=== PATIENT | female | born 1990 | race Hispanic/Latino ===

== ENCOUNTER 2017-03-30 12:43 | Inpatient (IN) | payer OTHER, MEDICAID ==
--- NOTE | 2017-03-30 15:12 | Ultrasound Report ---
BIOPHYSICAL PROFILE: INDICATION: well being. COMPARISON: None similar. TECHNIQUE: Transabdominal ultrasound with Doppler interrogation. 2 - breathing movements 0 - movements 2 - posture and tone 2 - Qualitative amniotic fluid volume 6 - TOTAL SCORE OF POSSIBLE 8 Heart Rate (bpm) 147 CONCLUSION: Findings, as above.
--- NOTE | 2017-03-30 15:23 | Ultrasound Report ---
OB LIMITED INDICATION: well being. COMPARISON: None similar at this institution. TECHNIQUE: Transabdominal grayscale ultrasound with Doppler interrogation. Gestation: Jiménez Position: Cephalic Amniotic Fluid: WNL (7-24 cm) STEPHANIE = 5 cm Heart Rate: 143 BPM CONCLUSION: Findings, as above.
[2017-03-30] MEDS ORDERED: LACTATED RINGERS 1,000 ML ONE (16:52)
[2017-03-30] MEDS ORDERED: BRETHINE SUB-Q PRN (17:35)
[2017-03-30] MEDS ORDERED: POLYCILLIN/NS 2 GM/100 ML 2 GM/100 ML BAG IV ONE (17:35)
[2017-03-30] MEDS ORDERED: XYLOCAINE 2% INFILTRATI ONE (17:35)
[2017-03-30] MEDS ORDERED: ePHEDrine SULFATE IV PRN (17:35)
[2017-03-30] MEDS ORDERED: MINERAL OIL PO PRN (17:35)
[2017-03-30] MEDS ORDERED: BRETHINE IVP PRN (17:35)
[2017-03-30 17:48] LABS: Hematocrit 36.9 % (30.3-42.9); Hemoglobin 12.3 gm/dl (10.1-14.3); Mean Corpuscular HGB Conc 33 % (30-34); Mean Corpuscular Hemoglobin 33 pg (28-32); Mean Corpuscular Volume 97 fl (79-97); Platelet Count 207 K/mm3 (140-440); Red Blood Count 3.79 M/mm3 (3.65-5.03); Red Cell Distribution Width 14.4 % (13.2-15.2); White Blood Count 13.6 K/mm3 (4.5-11.0)
[2017-03-30] MEDS ORDERED: PITOCin/NS 20 UNIT/1000ML DRIP 20 UNITS/1,000 ML BAG IV SCH (18:00)
[2017-03-30] MEDS ORDERED: PITOCin/NS 30 UNIT/500ML 30 UNITS/500 ML BAG IV SCH (18:00)
--- NOTE | 2017-03-30 18:40 | Ultrasound Report ---
FINAL REPORT PROCEDURE: US OB FOLLOW UP TECHNIQUE: Real-time transabdominal sonography of the uterus, placenta, amniotic fluid, adnexa, and fetus was performed with image documentation. Measurements were obtained to determine age/size. M-mode Doppler was used to document heartbeat. CPT 57375 HISTORY: estimate weight COMPARISON: No prior studies are available for comparison. FINDINGS: ADDITIONAL GESTATION: None. GENERAL: IUP: Single living intrauterine . Position: Cephalic FETUS: Heart rate and rhythm: 141 beats per minute MEASUREMENTS: BPD: 8.9 cm HC: 32.2 cm AC: 34.6 cm FL: 7.1 cm Mean Gestational Age (composite criteria): 36 weeks 5 days Ratio biometry: Normal. Estimated Weight: 3209 grams. IMPRESSION: Single intrauterine gestation at 36 weeks 5 days. Estimated weight is 3209 grams or 7 pounds 1 ounces.
[2017-03-30] MEDS: PITOCin/NS 30 UNIT/500ML 30 UNITS/500 ML BAG IV SCH (18:53)
[2017-03-30] MEDS: LACTATED RINGERS 1,000 ML IV SCH (18:54)
[2017-03-30] MEDS: SUBLIMAZE IV PRN (20:10)
--- NOTE | 2017-03-30 20:53 | History and Physical Report ---
History of Present Illness Date of examination: 03/30/17 Date of admission: 03/30/17 15:37 Chief complaint: Labor being augmented at 39 weeks, 2 days due to oligohydramnios and BPP 6/8 and variable FHR deceleration. History of present illness: 26 year old being augmented due to oligohydramnios, variable FHR deceleration, and BPP 6/8 (2 off for movement). Patient denies vaginal bleeding. She reports irregular contractions. She has received care at [facility] and has had the following problems during : cigarette smoker; renal colic; mild bilateral hydronephrosis vitamin D insufficiency (supplemented); GBS bacteriuria (treated); mild anemia ( supplemented). Patient has been taking PNV, iron, vitamin D, and Hydrocodone ( pt. states she was taking this for the renal colic). Past History Past Medical History: other (cigarette smoker) Past Surgical History: D&C, other (hernia surgery; colposcopy) [facility] History: abnormal PAP smear Family/Genetic History: heart disease, hypertension, other (bipolar disease, emphysema, thyroid disease, kidney stones, scoliosis) Social history: , lives with family, smoking, full code. denies: alcohol abuse, IV drug use - Obstetrical History Expected Date of Delivery: 04/04/17 Actual Gestation: 39 Week(s) 2 Day(s) : 4 Para: 2 Hx # Term Pregnancies: 3 Number of Pregnancies: 0 Spontaneous Abortions: 1 Induced : 0 Number of Living Children: 2 Medications and Allergies Allergies Allergy/AdvReac Type Severity Reaction Status Date / Time No Known Allergies Allergy Unverified 03/30/17 12:44 Home Medications Medication Instructions Recorded Confirmed Last Taken Type Ferrous Sulfate 1 tab PO QDAY 03/30/17 03/30/17 03/28/17 08:00 History Vitamin Tablet 1 tab PO QDAY 03/30/17 03/30/17 03/28/17 08:00 History 1 Vitamin D (Nf) 1 tab PO QDAY 03/30/17 03/30/17 03/28/17 08:00 History 1 Active Meds: Active Medications Fentanyl (Sublimaze) 100 mcg IV Q2H PRN PRN Reason: Labor Pain Last Admin: 03/30/17 20:10 Dose: 100 mcg Lactated Ringer's (Lactated Ringers) 1,000 mls @ 125 mls/hr IV DIRECT DANIEL Last Admin: 03/30/17 18:54 Dose: 125 mls/hr Oxytocin/Sodium Chloride (Pitocin/Ns 20 Unit/1000ml Drip) 20 units in 1,000 mls @ 125 mls/hr IV DIRECT DANIEL Oxytocin/Sodium Chloride (Pitocin/Ns 30 Unit/500ml) 30 units in 500 mls @ 0 mls /hr IV TITR DANIEL; Per Protocol PRN Reason: Protocol Last Titration: 03/30/17 20:00 Dose: 6 ml/hr, 6 mls/hr Oxytocin/Sodium Chloride (Pitocin/Ns 30 Unit/500ml) 30 units in 500 mls @ 1 mls /hr IV TITR DANIEL; 1 MILLIUNITS/MIN PRN Reason: Protocol Ampicillin Sodium (Polycillin/Ns 1 Gm/50 Ml) 1 gm in 50 mls @ 100 mls/hr IV Q4HR DANIEL PRN Reason: Protocol Mineral Oil (Mineral Oil) 30 ml PO QHS PRN PRN Reason: Constipation Review of Systems All systems: negative (common cold symptoms) - Vital Signs Vital signs: Vital Signs Pulse BP 83 105/73 03/30/17 13:18 03/30/17 13:18 Temp Pulse Resp BP Pulse Ox 98.1 F 74 14 99/51 74 L 03/30/17 19:36 03/30/17 20:19 03/30/17 19:36 03/30/17 20:19 03/30/17 13:49 - Physical Exam Cardiovascular: Regular rate, Normal S1, Normal S2 Lungs: Positive: Clear to auscultation Abdomen: Positive: normal appearance, soft. Negative: distention, tenderness, guarding, rigidity Genitourinary (Female): Positive: normal external genitalia (no lesions seen on careful exam with bright light upon admission). Negative: perineal/vulvar lesions Vagina: Positive: normal moisture, other (SSE: no pooling; negative fern test) Uterus: Positive: enlarged. Negative: tender Anus/Rectum: Positive: normal perianal skin Extremities: Positive: normal. Negative: tenderness, edema - Obstetrical FHR: category 1 Uterine Contraction Monitor Mode: External Cervical Dilatation: 3 Cervical Effacement Percentage: 80 station: -2 Uterine Contraction Pattern: Irregular Uterine Contraction Intensity: Moderate Results Result Diagrams: 03/30/17 16:00 Abnormal lab results 03/30/17 Range/Units 16:00 WBC 13.6 H (4.5-11.0) K/mm3 MCH 33 H (28-32) pg All other labs normal. Assessment and Plan A: at 39 weeks, 2 days gestation. GBS positive. Oligohydramnios. BPP 6 /8. P: Admit. GBS prophylaxis. Continuous EFM. Pitocin augmentation of labor. Discussed with patient risks and benefits of Pitocin augmentation of labor and alternatives to Pitocin augmentation of labor. Patient consented to Pitocin augmentation of labor. After admission, during history, patient reports that she has had a shoulder dystocia in the past with her first delivery; first baby weighed 7 lbs. 7 oz. Patient states her second baby was born vaginally without dystocia (second baby weighed 6 lb. 5 oz). This history had not been disclosed by pt. or s.o. during her care. Discussed with patient risks and benefits of having a vaginal versus a delivery; risk of repeat shoulder dystocia should she deliver vaginally discussed with patient. Advised patient that shoulder dystocia cannot be diagnosed until the baby's head is born and that shoulder dystocia cannot be reliably predicted. Advised patient of her increased risk of shoulder dystocia over baseline rate given her history of shoulder dystocia with a previous delivery. Discussed with patient manuevers that are used to resolve shoulder dystocia if it should occur and the possibility that the baby could sustain injury even in mild cases and with expert management. Patient voiced understanding of all of the above discussion; patient states she would like to proceed with augmentation of labor and would like to proceed with vaginal delivery. Patient declined section. Consulted Dr. Brooks re: patient's history of shoulder dystocia with her first , EFW of 7 lb. 1 oz., weights of patient's previous babies. Dr. Brooks states it is OK to proceed with augmentation of labor and vaginal .
[2017-03-30] MEDS: POLYCILLIN/NS 1 GM/50 ML 1 GM/50 ML BAG IV SCH (22:01)
--- NOTE | 2017-03-30 22:31 | Event Note ---
Date: 03/30/17 Patient declined flu swab.
[2017-03-31 00:40] LABS: Urine Drugs of Abuse Note Disclamer
--- NOTE | 2017-03-31 00:58 | Event Note ---
Date: 03/31/17 Patient requests to stop Pitocin and rest. Reactive heart rate tracing. Pitocin stopped. Will restart in several hours. Continuous EFM.
[2017-03-31] MEDS: POLYCILLIN/NS 1 GM/50 ML 1 GM/50 ML BAG IV SCH ×3 (02:00→10:25)
--- NOTE | 2017-03-31 05:12 | Event Note ---
Date: 03/31/17 Patient rested for a few hours. Plan was to restart Pitocin at 5:00 am. Came to L&D and reviewed tracing prior to restarting Pitocin. Mild irregular contractions per monitor which patient has been sleeping through. FHR baseline 120 with moderate variability; intermittent variable FHR decelerations noted with return to baseline of 120. Patient was resting in left lateral position; changed patient's position to right lateral; IV fluid bolus given. O2 applied per face mask. Consulted Dr. Brooks re: restarting Pitocin; Dr. Brooks states she will come in and view the FHR tracing prior to restarting Pitocin. Advised patient of this plan of care to leave Pitocin off until Dr. Brooks evaluates. SVE unchanged.
--- NOTE | 2017-03-31 06:11 | Event Note ---
Date: 03/31/17 Dr. Brooks reviewed tracing and states to restart Pitocin. Will restart Pitocin and continue EFM. FHR baseline 120 with moderate variability and accels with occasional variable deceleration. Patient continues lateral position, fluid bolus, and O2 per face mask.
[2017-03-31] MEDS: SUBLIMAZE IV PRN ×2 (07:31→13:02)
[2017-03-31] MEDS: PITOCin/NS 30 UNIT/500ML 30 UNITS/500 ML BAG IV SCH ×7 (07:32→13:09)
[2017-03-31] MEDS: LACTATED RINGERS 1,000 ML IV SCH (13:39)
[2017-03-31] MEDS ORDERED: XYLOCAINE 2% INFILTRATI ONE (14:21)
[2017-03-31] MEDS ORDERED: NORCO 5/325 PO PRN (14:44)
[2017-03-31] MEDS ORDERED: MILK OF MAGNESIA PO PRN (14:44)
[2017-03-31] MEDS ORDERED: TUCKS PAD TP PRN (14:44)
[2017-03-31] MEDS ORDERED: LANSINOH TP PRN (14:44)
--- NOTE | 2017-03-31 14:54 | Procedure Note ---
OB Delivery Note - Vaginal Delivery presentation: vertex Delivery position: OA Delivery induction: oxytocin Delivery augmentation: rupture of membranes Delivery monitor: external FHT, external uterine, internal FHT Route of delivery: Delivery placenta: spontaneous Delivery cord: 3 umbilical vessels Episiotomy: none Delivery laceration: none Anesthesia: none Delivery comments: Spontaneous vaginal delivery of liveborn female infant weighing 2.41 kg over intact perineum with apgars of 9/9. No anesthesia. Baby delivered easily and was placed immediately on maternal chest after delivery. Spontaneous cry and respirations. 3 vessel cord double clamped and cut after cessation of pulsation. Spontaneous delivery of intact placenta and membranes by helm mechanism. Placenta to pathology due to "overlapping" cotyledon. EBL 200 ml. Pitocin to IV fluids after delivery of placenta. Fundus firm and midline. No lacerations noted. Sponge count correct. Vaginal sweep negative.
[2017-03-31] MEDS ORDERED: SODIUM CHLORIDE FLUSH SYRINGE 10 ML IV NR (15:00)
[2017-03-31] MEDS: MOTRIN PO SCH ×2 (15:50→22:17)
[2017-03-31] MEDS ORDERED: LACTATED RINGERS 250 ML IV ONE (18:43)
[2017-04-01] MEDS: NORCO 5/325 PO PRN ×4 (00:04→20:33)
[2017-04-01] MEDS ORDERED: LACTATED RINGERS 250 ML IV ONE (01:30)
[2017-04-01] MEDS: MOTRIN PO SCH ×3 (05:52→17:35)
--- NOTE | 2017-04-01 08:40 | Progress Note ---
Assessment and Plan A: day 1. Cigarette smoker. Cough and wheezing. P: Chest x-ray. Encourage patient to avoid smoking. Subjective - Subjective Date of service: 04/01/17 Principal diagnosis: day 1 S/P spontaneous vaginal delivery Interval history: day 1 S/P spontaneous vaginal delivery. Patient is doing well. Bottlefeeding. Patient reports small amount of lochia and no clots. Patient is ambulating well and voiding without difficulty. She is tolerating a regular diet without nausea or vomiting. She is a smoker; she also has had a cold/cough (had this upon admission). Patient denies headache, chest pain, shortness of breath, abdominal pain, leg pain, or heavy vaginal bleeding. H/H results from this AM not yet available. Patient reports: appetite normal, voiding normally, pain well controlled, ambulating normally Stopover: doing well Objective - Vital Signs Latest vital signs: Vital Signs Temp Pulse Resp BP BP BP Pulse Ox 04/01/17 07:51 97.9 F 51 L 16 100/53 97 04/01/17 05:52 20 04/01/17 00:04 20 04/01/17 00:00 98.1 F 52 L 18 92/53 03/31/17 22:17 20 03/31/17 20:40 97.6 F 44 L 18 87/47 03/31/17 18:20 98.6 F 51 L 16 94/48 03/31/17 18:17 98.6 F 52 L 16 82/43 03/31/17 16:20 98.3 F 50 L 18 93/50 03/31/17 15:34 43 L 100 03/31/17 15:31 42 L 113/63 03/31/17 15:30 97.7 F 44 L 16 113/63 99 03/31/17 15:16 42 L 108/59 03/31/17 15:14 42 L 18 108/59 03/31/17 15:11 42 L 109/60 03/31/17 15:08 42 L 18 109/60 03/31/17 14:46 45 L 136/56 03/31/17 14:43 45 L 18 136/56 03/31/17 13:13 51 L 92/51 03/31/17 12:41 48 L 100/58 03/31/17 12:05 56 L 104/58 03/31/17 11:24 57 L 94/50 03/31/17 10:33 53 L 96/52 03/31/17 10:32 71 81/52 03/31/17 08:48 44 L 104/53 Intake and Output 03/31/17 04/01/17 04/01/17 23:59 07:59 15:59 Intake Total 240 240 Output Total 1400 Balance -1160 240 Intake: Oral 240 240 Output: Urine 1400 Void 1400 Other: Total, Intake Amount 240 120 Total, Output Amount 900 # Voids Void 1 1 - Exam Cardiovascular: Present: Regular rate, Normal S1, Normal S2 Lungs: Present: Clear to auscultation Abdomen: Present: normal appearance, soft. Absent: distention, tenderness, guarding, rigidity Uterus: Present: normal, firm. Absent: bogginess, tenderness Extremities: Present: normal, edema
[2017-04-01 08:46] LABS: Hematocrit 30.2 % (30.3-42.9); Hemoglobin 10.7 gm/dl (10.1-14.3)
--- NOTE | 2017-04-01 09:50 | XRay Report ---
XRAY CHEST TWO VIEWS: 04/01/17 CLINICAL: Cough and wheezing. COMPARISON: None FINDINGS: Normal heart and pulmonary vasculature. The lungs are normally expanded and clear.The bones and soft tissues are unremarkable. IMPRESSION: Normal chest.
[2017-04-01 15:37] VITALS: BP 106/53
--- NOTE | 2017-04-01 17:58 | Discharge Summary ---
Providers - Providers Date of Admission: 03/30/17 15:37 Date of discharge: 04/01/17 Attending physician: TULIO TAM MD Primary care physician: Dr. Tam Hospitalization Reason for admission: induction of labor, other (oligohydramnios; variable FHR deceleration; BPP 6/8) Delivery: Episiotomy: none Laceration: none Other procedures: none complications: none Discharge diagnosis: IUP at term delivered [place] baby: female Pertinent studies: Labs, ultrasound, chest x-ray. Hospital course: Normal hospital course. discharge instructions and warning signs discussed with patient. Advised patient to avoid IC, heavy lifting and housework for 6 weeks. Patient has Rx for Ferrous Sulfate, Zithromax, and Motrin at [facility] pharmacy on [facility]. Advised patient to call the office tomorrow and make a follow up appointment in [address] Tam to discuss BTL. Patient desires BTL for control at 6 wks . Advised patient to stop smoking. Advised patient to return if she has shortness of breath, chest pain, productive cough, fever, chills, heavy vaginal bleeding, or any other problems. Follow up with her PCP as soon as possible for assistance with smoking cessation. Consulted with Dr. Tam re: patient and wheezing heard during exam and negative CXR. Dr. Tam states it is OK to discharge patient to home today. Condition at discharge: Good Disposition: DC-01 TO HOME OR SELFCARE Plan - Provider Discharge Summary Activity: routine, no sex for 6 weeks, no heavy lifting 4 weeks, no strenuous exercise Diet: routine Instructions: routine Additional instructions: [] Smoking cessation referral if applicable(refer to patient education folder for contact #) [] Refer to [facility] Booklet Call your doctor immediately for: * Fever > 100.5 * Heavy vaginal bleeding ( >1 pad per hour) * Severe persistent headache * Shortness of breath * Reddened, hot, painful area to leg or breast - Follow up plan Follow up: TULIO TAM MD [Staff Physician] - 05/01/17
[2017-04-01] MEDS ORDERED: FEOSOL PO SCH (22:00)
== END 2017-04-01 21:00 | disposition home or self-care (01) | DRG 775 ==
LOC: TRG 12:43 → LD 15:37 → TRG 15:37 → OB 03-31 16:11
PROVIDERS: ADMIT Obstetrics & Gynecology; ATTEND Obstetrics & Gynecology
PROC: 10E0XZZ Delivery of Products of Conception, External Approach (ICD-10-PCS; principal; 2017-03-31)
PROC: 3E0P3VZ Introduction of Hormone into Female Reproductive, Percutaneous Approach (ICD-10-PCS; 2017-03-31)
DX: O76 Abnormality in fetal heart rate and rhythm complicating labor and delivery (principal); O41.03X0 Oligohydramnios, third trimester, not applicable or unspecified; N13.30 Unspecified hydronephrosis; O99.334 Smoking (tobacco) complicating childbirth; F17.200 Nicotine dependence, unspecified, uncomplicated; O99.824 Streptococcus B carrier state complicating childbirth; O99.89 Other specified diseases and conditions complicating pregnancy, childbirth and the puerperium; E55.9 Vitamin D deficiency, unspecified; O75.89 Other specified complications of labor and delivery; N23 Unspecified renal colic; Z37.0 Single live birth; Z82.49 Family history of ischemic heart disease and other diseases of the circulatory system; Z84.1 Family history of disorders of kidney and ureter; Z3A.39 39 weeks gestation of pregnancy; Z79.899 Other long term (current) drug therapy
CPT/HCPCS: 36415; 59025; 71020; 76815; 76816; 76819; 80307; 85014; 85018; 85027; 86850; 86900; 86901; 88307; J0290; J2590; J3010; J7120

== ENCOUNTER 2019-01-28 19:59 | Emergency (ER) | payer SELFPAY ==
[2019-01-28] MEDS ORDERED: PROVENTIL IH ONE ×2 (20:15→20:18)
[2019-01-28] MEDS ORDERED: ATROVENT IH ONE ×2 (20:15→20:19)
--- NOTE | 2019-01-28 20:52 | Emergency Department Report ---
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 Patient reports over the last 2 days she has had increased wheezing. Reports productive cough, subjective fever. No relief with nebulizer treatments at home. Patient given Solu-Medrol 125 mg by EMS. Pt r eports she is 3 mos . Denies abdominal pain. MD Complaint: shortness of breath -: days(s) (2) Severity: moderate Consistency: constant Improves With: nothing Known History Of: COPD Treatments Prior to Arrival: bronchodilator - Related Data Home Oxygen Therapy: No Previous Rx's Medication Instructions Recorded Last Taken Type predniSONE [Deltasone] 50 mg PO QDAY #5 tab 01/28/19 Unknown Rx Albuterol Sulfate [Albuterol 0.63% 0.63 mg IH TID PRN #100 units 01/29/19 Unknown Rx NEBS] Allergies Allergy/AdvReac Type Severity Reaction Status Date / Time No Known Allergies Allergy Unverified 03/30/17 12:44 ED Review of Systems ROS: Stated complaint: SONYA Other details as noted in HPI Comment: All other systems reviewed and negative Constitutional: fever Respiratory: cough, shortness of breath, wheezing Cardiovascular: denies: chest pain ED Past Medical Hx - Past Medical History Hx Hypertension: No Hx Congestive Heart Failure: No Hx Diabetes: No Hx Deep Vein Thrombosis: No Hx Renal Disease: Yes (hydronephrosis) Hx Sickle Cell Disease: No Hx Seizures: No Hx Asthma: No Hx COPD: No Hx HIV: No - Social History Smoking Status: Never Smoker - Medications Home Medications: Home Medications Medication Instructions Recorded Confirmed Last Taken Type predniSONE [Deltasone] 50 mg PO QDAY #5 tab 01/28/19 Unknown Rx Albuterol Sulfate [Albuterol 0.63% 0.63 mg IH TID PRN #100 units 01/29/19 Unknown Rx NEBS] ED Physical Exam - General Limitations: No Limitations General appearance: alert - Head Head exam: Present: atraumatic, normocephalic - Eye Eye exam: Present: normal appearance - ENT ENT exam: Present: mucous membranes moist - Neck Neck exam: Present: normal inspection - Respiratory Respiratory exam: Present: respiratory distress (mild), wheezes (bilaterally) - Cardiovascular Cardiovascular Exam: Present: regular rate, normal rhythm - GI/Abdominal GI/Abdominal exam: Present: soft. Absent: distended, tenderness - Extremities Exam Extremities exam: Present: normal inspection - Neurological Exam Neurological exam: Present: alert, oriented X3 - Psychiatric Psychiatric exam: Present: normal affect, normal mood - Skin Skin exam: Present: warm, dry, intact, normal color ED Course Vital Signs 01/28/19 01/28/19 01/28/19 20:17 20:24 20:32 Temperature 98.3 F Pulse Rate 92 H Pulse Rate [ 93 H Anterior] Respiratory 20 20 Rate Respiratory 19 Rate [Anterior] Blood Pressure 98/72 [Left] O2 Sat by Pulse 100 97 Oximetry 01/28/19 01/29/19 21:29 00:12 Temperature Pulse Rate 100 H 101 H Pulse Rate [ Anterior] Respiratory 18 16 Rate Respiratory Rate [Anterior] Blood Pressure 100/43 107/44 [Left] O2 Sat by Pulse 100 96 Oximetry ED Medical Decision Making - Medical Decision Making 28 yo F w/ COPD exacerbation. Albuterol nebs and solumedrol given by EMS. Wheezing still present on ED arrival. One hour neb and mag sulfate administered. Pt was re-evaluated multiple times. Wheezing resolved. Reports she is currently feeling much better. Ambulatory w/o difficulty. Pt refused CXR w/ shielding since she is 3 mos . Rx given for albuterol nebs and prednisone. Out pt f/u advised. - Differential Diagnosis COPD, pneumonia, pulm edema Critical care attestation.: If time is entered above; I have spent that time in minutes in the direct care of this critically ill patient, excluding procedure time. ED Disposition Clinical Impression: COPD with acute exacerbation Disposition: - TO HOME OR SELFCARE Is pt being admited?: No Condition: Stable Instructions: Chronic Obstructive Pulmonary Disease (ED) Prescriptions: Albuterol Sulfate [Albuterol 0.63% NEBS] 0.63 mg IH TID PRN #100 units PRN Reason: Wheezing predniSONE [Deltasone] 50 mg PO QDAY #5 tab Referrals: [facility] MD NAILA [Primary Care Provider] - 3-5 Days [facility] [Referring] - 3-5 Days [facility] [Provider Group] - 3-5 Days Time of Disposition: 23:18
[2019-01-28] MEDS ORDERED: MAGNESIUM SULFATE 2GM/50ML 2 GM/50 ML BAG IV ONE (21:22)
[2019-01-29 00:14] VITALS: BP 107/44
== END 2019-01-29 00:14 | disposition home or self-care (01) ==
LOC: ED 19:59
DX: O99.511 Diseases of the respiratory system complicating pregnancy, first trimester (principal); Z3A.12 12 weeks gestation of pregnancy
CPT/HCPCS: 36415; 84702; 84703; 94644; 96374; 99283; J3475

== ENCOUNTER 2019-01-29 04:48 | Emergency (ER) | payer SELFPAY ==
[2019-01-29 04:57] VITALS: BP 111/57
[2019-01-29] MEDS ORDERED: DUONEB *Not for PRN Use IH ONE (05:00)
== END 2019-01-29 05:58 | disposition left against medical advice (07) ==
LOC: ED 04:48
DX: Z53.21 Procedure and treatment not carried out due to patient leaving prior to being seen by health care provider (principal)